=== PATIENT | male | born 1985 | race Caucasian/White ===

== ENCOUNTER 2017-10-23 00:19 | Emergency (ER) | payer BC ==
[2017-10-23] MEDS ORDERED: Morphine INJ* 10 MG/ML 1 ML CARPUJECT IV ONE (01:17)
[2017-10-23] MEDS ORDERED: NS 0.9% 1000 ML* 1,000 ML IV ONE (01:17)
[2017-10-23] MEDS ORDERED: Metoclopramide IV* 5 MG/ML 2 ML VIAL IV SLOW PU ONE (01:19)
[2017-10-23] MEDS ORDERED: Pantoprazole IV* 40 MG IV ONE (01:20)
[2017-10-23 01:30] LABS: ABS Basophils 0 10^3/ul (0-0.2); ABS Eosinophils 0.1 10^3/ul (0-0.6); ABS Lymphocytes 1.1 10^3/ul (1.0-4.8); ABS Monocytes 0.4 10^3/ul (0-0.8); ABS Neutrophils 8.4 10^3/ul (1.5-7.7); ABS Nucleated RBC 0.1 10^3/ul; Eosinophil % 0.5 % (0-6); Hematocrit 46 % (42-52); Hemoglobin 15.9 g/dl (14.0-18.0); Lymphocyte % 11.2 % (25-47); Mean Corpuscular HGB Conc 35 g/dl (31-36); Mean Corpuscular Hemoglobin 31 pg (27-31); Mean Corpuscular Volume 89 fL (80-94); Mean Platelet Volume 9 um3 (7.4-10.4); Nucleated Red Blood Cells % 0.7; Platelet Count 238 10^3/ul (150-450); Red Blood Count 5.15 10^6/ul (4.0-5.4); Red Cell Distribution Width 14 % (10.5-15)
[2017-10-23 01:42] LABS: EGFR Non-African American 65.3 (>60)
[2017-10-23 02:42] VITALS: BP 117/70
[2017-10-23] MEDS ORDERED: Iohexol 300* (CONTRAST) 10 ML SDV IV ONE (03:19)
--- NOTE | 2017-10-23 04:39 | ED ---
Leisa Hutchinson Thomas, scribed for Cheri Batista MD on 10/23/17 at 0128 . Abdominal Pain/Male - HPI Summary HPI Summary: The patient is a 32 year old male presenting with upper abdominal pain that began six hours ago after he ate chicken parmesan for dinner. The pain radiates to his back. He denies diarrhea or prior abdominal surgery. - History of Current Complaint Chief Complaint: EDAbdPain Stated Complaint: ABD PAIN Time Seen by Provider: 10/23/17 01:00 Hx Obtained From: Patient Onset/Duration: Lasting Hours - 6, Still Present Timing: Constant Severity Initially: Moderate Severity Currently: Moderate Pain Intensity: 6 Pain Scale Used: 0-10 Numeric Location: Other - Upper abd Radiates: Yes Radiates to: Back Aggravating Factor(s): Food Alleviating Factor(s): Nothing Associated Signs And Symptoms: Negative: Diarrhea - Allergies/Home Medications Allergies/Adverse Reactions: Allergies Allergy/AdvReac Type Severity Reaction Status Date / Time No Known Allergies Allergy Verified 10/23/17 00:26 PMH/Surg Hx/FS Hx/Imm Hx Sensory History: Reports: Hx Contacts or Glasses - GLASSES Denies: Hx Hearing Aid Opthamlomology History: Reports: Hx Contacts or Glasses - GLASSES EENT History: Denies: Hx Deafness - Surgical History Surgery Procedure, Year, and Place: WISOM TEETH REMOVAL OFFICE Hx Anesthesia Reactions: No Infectious Disease History: No Infectious Disease History: Denies: Traveled Outside the [place] in Last 30 Days - Family History Known Family History: Negative: Blood Disorder - Social History Alcohol Use: Occasionally Substance Use Type: Reports: None Smoking Status (MU): Never Smoked Tobacco Review of Systems Negative: Fever Positive: Abdominal Pain. Negative: Diarrhea All Other Systems Reviewed And Are Negative: Yes Physical Exam - Summary Physical Exam Summary: VITAL SIGNS: Reviewed. GENERAL: Patient is a well-developed and nourished MALE who is lying comfortable in the stretcher. Patient is not in any acute respiratory distress. HEAD AND FACE: No signs of trauma. No ecchymosis, hematomas or skull depressions. No sinus tenderness. EYES: PERRLA, EOMI x 2, No injected conjunctiva, no nystagmus. EARS: Hearing grossly intact. Ear canals and tympanic membranes are within normal limits. MOUTH: Oropharynx within normal limits. NECK: Supple, trachea is midline, no adenopathy, no JVD, no carotid bruit, no c- spine tenderness, neck with full ROM. CHEST: Symmetric, no tenderness at palpation LUNGS: Clear to auscultation bilaterally. No wheezing or crackles. CVS: Regular rate and rhythm, S1 and S2 present, no murmurs or gallops appreciated. ABDOMEN: Soft. He has RUQ and epigastric tenerness. No signs of distention. No rebound no guarding, and no masses palpated. Bowel sounds are normal. EXTREMITIES: FROM in all major joints, no edema, no cyanosis or clubbing. NEURO: Alert and oriented x 3. No acute neurological deficits. Speech is normal and follows commands. SKIN: Dry and warm Triage Information Reviewed: Yes Vital Signs On Initial Exam: Initial Vitals Temp Pulse Resp BP Pulse Ox 97.0 F 43 16 149/90 100 10/23/17 00:23 10/23/17 00:23 10/23/17 00:23 10/23/17 00:23 10/23/17 00:23 Vital Signs Reviewed: Yes Diagnostics - Vital Signs Vital Signs Temp Pulse Resp BP Pulse Ox 10/23/17 00:23 97.0 F 43 16 149/90 100 - Laboratory Result Diagrams: 10/23/17 01:17 10/23/17 01:17 Lab Statement: Any lab studies that have been ordered have been reviewed, and results considered in the medical decision making process. - CT CT Abd/Pel CT Interpretation: No Acute Changes - Trace nonspecific pericholecystic fluid. Gallbladder otherwise unremarkable. No bowel obstruction, colitis, diverticulitis, or free air. Normal appendix. Unremarkable pancreas and kidneys. Borderline hepatosplenomegaly. Dr. Batista has reviewed this report. CT Interpretation Completed By: Radiologist Re-Evaluation - Re-Evaluation First Eval Re-Evaluation Time: 04:30 Change: Improved Comment: Patient feels better. Abdominal Pain Fem Course/Dx - Course Assessment/Plan: The patient is a 32 year old male presenting with upper abdominal pain that began six hours ago after he ate chicken parmesan for dinner. In the ED course the patient was given IV fluids, morphine, Reglan, and Pepcid. Bloodwork and urinalysis was obtained. CT Abd/Pel shows trace nonspecific pericholecystic fluid. Gallbladder otherwise unremarkable. No bowel obstruction, colitis, diverticulitis, or free air. Normal appendix. Unremarkable pancreas and kidneys. Borderline hepatosplenomegaly. At re- evaluation at 04:30, the patient feels better. He will be discharged home with diagnosis of abdominal pain. Patient will follow up with primary care. - Diagnoses Provider Diagnoses: Abdominal pain Discharge - Discharge Plan Condition: Stable Disposition: HOME Patient Education Materials: Abdominal Pain (ED) Referrals: [facility] PHYSICIAN REFERRAL [Outside] - 3 Days Additional Instructions: Follow up with your primary care physician in three days. If you do not have a primary care provider, you can use the [facility] physician referral service to find one and make an appointment. Return to the emergency department for any new or worsening symptoms. The documentation as recorded by the Leisa houston Thomas accurately reflects the service I personally performed and the decisions made by me, Cheri Batista MD.
--- NOTE | 2017-10-23 08:29 | RAD ---
INDICATION: Abdominal pain. COMPARISON: There are no prior studies available for comparison. TECHNIQUE: A CT scan of the abdomen and pelvis was performed with intravenous and oral contrast following intravenous injection of 100 ml of Omnipaque 300 nonionic contrast. Contiguous axial sections were obtained from the lung bases through the symphysis pubis. Images were reconstructed in the coronal and sagittal planes. FINDINGS: There is mild dependent bilateral lower lobe subsegmental atelectasis. No pleural effusion is present. The liver and spleen are normal in size without significant focal abnormality. No intra or extrahepatic ductal distention is noted. No calcified gallstones are seen although there is mild increased density within the gallbladder suspicious for gallstones or sludge. The pancreas appears to be within normal limits. The kidneys and adrenal glands are normal in size. No hydronephrosis is seen. No significant focal renal abnormality is seen. The aorta is normal in caliber and demonstrates homogeneous contrast opacification. No significant enlarged retroperitoneal lymph nodes are seen. The stomach, small and large bowel appear nondistended. The appendix is within normal limits. There is mild descending and sigmoid diverticulosis without evidence for diverticulitis. No free intraperitoneal air or fluid is seen. No significant focal osseous abnormality is seen. The results of this examination were called to the emergency department charge nurse Josie. IMPRESSION: FINDINGS SUSPICIOUS FOR CHOLELITHIASIS OR GALLBLADDER SLUDGE. RECOMMEND A RIGHT UPPER QUADRANT ULTRASOUND FOR FURTHER EVALUATION.
== END 2017-10-23 04:40 | disposition home or self-care (01) ==
LOC: ED 00:19
DX: R10.10 Upper abdominal pain, unspecified (principal)
CPT/HCPCS: 36415; 74177; 80053; 82150; 83690; 83735; 85025; 85730; 86140; 96360; 96374; 96375; 99283; J2270; J2765; Q9967

== ENCOUNTER 2017-12-23 20:33 | Emergency (ER) | payer BC ==
[2017-12-23 20:41] VITALS: BP 164/99
--- NOTE | 2017-12-26 12:27 | UC ---
Iain Hutchinson Nikita, scribed for Vlad Anthony MD on 12/23/17 at 2057 . Abdominal Pain Male HPI - HPI Summary HPI Summary: This patient is a 32 year old M presenting to [facility] with a chief complaint of RUQ since 1845 after eating. The patient rates the pain 4-5/10 in severity. Symptoms aggravated by nothing. Symptoms alleviated by nothing. Patient reports nausea. Patient denies vomiting. The patient reports he had a similar pain when he had to go to ED 2 months ago. - History of Current Complaint Chief Complaint: UCAbdominalPain Stated Complaint: ABDOMINAL PAIN Time Seen by Provider: 12/23/17 20:44 Hx Obtained From: Patient Onset/Duration: Sudden Onset, Lasting Hours, Still Present Severity Initially: Moderate Severity Currently: Moderate Pain Intensity: 5 Pain Scale Used: 0-10 Numeric Location: Discrete At: RUQ Aggravating Factor(s): Nothing Alleviating Factor(s): Nothing Associated Signs And Symptoms: Positive: Other - Patient reports nausea. Patient denies vomiting. - Allergies/Home Medications Allergies/Adverse Reactions: Allergies Allergy/AdvReac Type Severity Reaction Status Date / Time No Known Allergies Allergy Verified 12/23/17 20:41 PMH/Surg Hx/FS Hx/Imm Hx Cardiovascular History: Other Other Cardiovascular History: No CAD GI/ History: Other Other GI/ History: cholelithiasis - Surgical History Surgical History: Yes Surgery Procedure, Year, and Place: WISOM TEETH REMOVAL OFFICE - Family History Known Family History: Positive: Other Negative: Blood Disorder Family History: [place] father, [place] mother - Social History Alcohol Use: Occasionally Substance Use Type: None Smoking Status (MU): Never Smoked Tobacco Review of Systems Constitutional: Other - denies fever Gastrointestinal: Abdominal Pain - RUQ, Nausea, Other - denies vomiting All Other Systems Reviewed And Are Negative: Yes Physical Exam - Summary Physical Exam Summary: VITAL SIGNS: Reviewed. GENERAL: ~Patient is a well-developed and nourished MALE who is lying comfortable in the stretcher. ~Patient is not in any acute respiratory distress. HEAD AND FACE: Normocephalic EYES: PERRLA, EOMI x 2. EARS: Hearing grossly intact. MOUTH: Oropharynx within normal limits. NECK: Supple, trachea is midline, no adenopathy, no JVD, no carotid bruit. CHEST: Symmetric, no tenderness at palpation LUNGS: Clear to auscultation bilaterally. No wheezing or crackles. CVS: Regular rate and rhythm, S1 and S2 present, no murmurs or gallops appreciated. ABDOMEN: Bowel sounds are normal. Positive RUQ pain with some guarding without rebound. EXTREMITIES: Full ROM in all major joints, no edema, no cyanosis or clubbing. NEURO: Alert and oriented x 3. No acute neurological deficits. Speech is normal and follows commands. SKIN: Dry and warm Triage Information Reviewed: Yes Vital Signs: Initial Vital Signs Temp 96.7 F 12/23/17 20:38 Pulse 48 12/23/17 20:38 Resp 12 12/23/17 20:38 BP 164/99 12/23/17 20:38 Pulse Ox 100 12/23/17 20:38 Vital Signs Reviewed: Yes Abd Pain Male Course/Dx - Course Course Of Treatment: This patient is a 32 year old M presenting to [facility] with a chief complaint of RUQ since 184 after eating. The patient rates the pain 4-5/ 10 in severity. Since the patient has hx of cholelithiasis, the gallbladder is large. Therefore, we believe the patient is having a gallbladder attack with nausea but without vomiting. Since we have no ability of US in , we will send him to the ED for further assessment. He declined ambulance. The pt is hemodynamically stable, alert and oriented x3. The patient was found to have increased BP in UC. The patient will follow up with PCP for better control of BP. Plan of care was discussed with the patient, and patient understands and agrees. All questions were answered to patient satisfaction. There were no further complaints or concerns. - Differential Dx/Clinical Impression Provider Diagnoses: RUQ abdominal pain Discharge - Sign-Out/Discharge Documenting (check all that apply): Discharge - Discharge Plan Condition: Stable Disposition: HOME Patient Education Materials: Abdominal Pain (ED) Referrals: [facility] PHYS[facility]IAN REFERRAL [Outside] No Primary Care Phys,NOPCP [Primary Care Provider] - Additional Instructions: Patient referred to the ED for further w/u. Decline ambulance. The documentation as recorded by the Iain houston Nikita accurately reflects the service I personally performed and the decisions made by , Vlad Anthony MD.
== END 2017-12-23 20:55 | disposition home or self-care (01) ==
LOC: UCEAST 20:33
DX: R10.11 Right upper quadrant pain (principal); R11.0 Nausea; K80.20 Calculus of gallbladder without cholecystitis without obstruction
CPT/HCPCS: 99212; G0463

== ENCOUNTER 2017-12-23 21:13 | Emergency (ER) | payer BC ==
[2017-12-23 23:05] LABS: ABS Basophils 0 10^3/ul (0-0.2); ABS Eosinophils 0 10^3/ul (0-0.6); ABS Monocytes 0.4 10^3/ul (0-0.8); ABS Neutrophils 7.2 10^3/ul (1.5-7.7); ABS Nucleated RBC 0 10^3/ul; Eosinophil % 0.5 % (0-6); Hematocrit 41 % (42-52); Hemoglobin 14.7 g/dl (14.0-18.0); Lymphocyte % 11.8 % (25-47); Mean Corpuscular HGB Conc 36 g/dl (31-36); Mean Corpuscular Hemoglobin 31 pg (27-31); Mean Corpuscular Volume 87 fL (80-94); Mean Platelet Volume 8.4 um3 (7.4-10.4); Nucleated Red Blood Cells % 0; Platelet Count 181 10^3/ul (150-450); Red Blood Count 4.71 10^6/ul (4.0-5.4); Red Cell Distribution Width 13 % (10.5-15); White Blood Count 8.7 10^3/ul (3.5-10.8)
[2017-12-23 23:22] LABS: EGFR Non-African American 60.9 (>60)
[2017-12-24 00:41] VITALS: BP 131/70
--- NOTE | 2017-12-24 00:45 | ED ---
Florence Hutchinson Rebecca, scribed for Cheri Batista MD on 12/23/17 at 2231 . Abdominal Pain/Male - HPI Summary HPI Summary: Pt is a 32 y/o M referred from [facility] who presents to ED c/o abdominal pain. Sx began tonight at approximately 1845 and resolved [employer], while en route to [facility] ED. Pain was in the RUQ and lasted about 3 hours, now completely resolved. Denies N/ V. Similar to prior episode about 1 month ago during which he was believed to have a gallstone. PMHx suspected gallstones as he had a similar episode about 1 month ago, though when he was seen before there was no US available. - History of Current Complaint Chief Complaint: EDAbdPain Stated Complaint: ABD PAIN Time Seen by Provider: 12/23/17 22:22 Hx Obtained From: Patient Onset/Duration: Lasting Hours, Resolved Severity Currently: None Pain Intensity: 0 Pain Scale Used: 0-10 Numeric Location: Discrete At: RUQ Aggravating Factor(s): Nothing Alleviating Factor(s): Spontaneous Resolution Associated Signs And Symptoms: Positive: Negative. Negative: Nausea, Vomiting - Allergies/Home Medications Allergies/Adverse Reactions: Allergies Allergy/AdvReac Type Severity Reaction Status Date / Time No Known Allergies Allergy Verified 12/23/17 20:41 Home Medications: Home Medications Cetirizine* [ZyrTEC 10 MG TAB*] 10 mg PO DAILY 12/23/17 [History Confirmed 12/23] PMH/Surg Hx/FS Hx/Imm Hx GI History: Reports: Other GI Disorders - Hx gallstones - suspected Sensory History: Reports: Hx Contacts or Glasses - GLASSES Denies: Hx Deafness, Hx Hearing Aid Opthamlomology History: Reports: Hx Contacts or Glasses - GLASSES - Surgical History Surgery Procedure, Year, and Place: WISOM TEETH REMOVAL OFFICE Hx Anesthesia Reactions: No Infectious Disease History: No Infectious Disease History: Denies: Traveled Outside the [place] in Last 30 Days - Family History Known Family History: Negative: Blood Disorder - Social History Alcohol Use: Occasionally Substance Use Type: Reports: None Smoking Status (MU): Never Smoked Tobacco Review of Systems Negative: Fever Positive: Abdominal Pain. Negative: Vomiting, Nausea All Other Systems Reviewed And Are Negative: Yes Physical Exam - Summary Physical Exam Summary: VITAL SIGNS: Reviewed. GENERAL: ~Patient is a well-developed and nourished male who is lying comfortable in the stretcher. Patient is not in any acute respiratory distress. HEAD AND FACE: No signs of trauma. No ecchymosis, hematomas or skull depressions. No sinus tenderness. EYES: PERRLA, EOMI x 2, No injected conjunctiva, no nystagmus. EARS: Hearing grossly intact. Ear canals and tympanic membranes are within normal limits. MOUTH: Oropharynx within normal limits. NECK: Supple, trachea is midline, no adenopathy, no JVD, no carotid bruit, no c- spine tenderness, neck with full ROM. CHEST: Symmetric, no tenderness at palpation LUNGS: Clear to auscultation bilaterally. No wheezing or crackles. CVS: Regular rate and rhythm, S1 and S2 present, no murmurs or gallops appreciated. ABDOMEN: Soft, non-tender. No signs of distention. No rebound no guarding, and no masses palpated. Bowel sounds are normal. EXTREMITIES: FROM in all major joints, no edema, no cyanosis or clubbing. NEURO: Alert and oriented x 3. No acute neurological deficits. Speech is normal and follows commands. SKIN: Dry and warm Triage Information Reviewed: Yes Vital Signs On Initial Exam: Initial Vitals Temp Pulse Resp BP Pulse Ox 97.5 F 57 18 154/93 97 12/23/17 21:32 12/23/17 21:32 12/23/17 21:32 12/23/17 21:32 12/23/17 21:32 Vital Signs Reviewed: Yes Diagnostics - Vital Signs Vital Signs Temp Pulse Resp BP Pulse Ox 12/23/17 21:32 97.5 F 57 18 154/93 97 - Laboratory Result Diagrams: 12/23/17 22:55 12/23/17 22:55 Lab Statement: Any lab studies that have been ordered have been reviewed, and results considered in the medical decision making process. - Ultrasound No standard instances Ultrasound Interpretation Completed By: Radiologist - Gallbladder US - Moderate suspicion for cholecystitis without biliary duct dilation. ED physician reviewed this radiology report. Re-Evaluation - Re-Evaluation First Eval Re-Evaluation Time: 23:55 Change: Improved Comment: Pt continues to be pain free. Discussed results and followup with Dr. Yee. Abdominal Pain Fem Course/Dx - Course Assessment/Plan: Pt is a 32 y/o M referred from [facility] who presents to ED c/o RUQ abdominal pain since approximately 184, resolving [employer], while en route to [facility] ED. Denies N/V. Similar to prior episode about 1 month ago during which he was believed to have a gallstone. PMHx suspected gallstones. Gallbladder US shows moderate suspicion for cholecystitis without biliary duct dilation. The pt has been pain free, has an unremarkable examination and normal labs, nothing consistent with acute cholecystitis. Discussed care of pt with Dr. Yee who will see the pt in his office in the morning. Pt will be D/C to home with Dx of biliary colic and cholecystitis with a followup with Dr. Yee. He understands and agrees. - Diagnoses Provider Diagnoses: Biliary colic, Cholelithiasis - Provider Notifications Discussed Care Of Patient With: King Yee Time Discussed With Above Provider: 23:55 Instructed by Provider To: Other - Will see the pt in his office in the morning. Discharge - Sign-Out/Discharge Documenting (check all that apply): Discharge - Discharge - Discharge Plan Condition: Stable Disposition: HOME Patient Education Materials: Biliary Colic (ED), Gallstones (ED) Referrals: King Yee MD [Medical Doctor] - 12/24/17 (Follow up with Dr. Yee in the morning. ) Dejon Staples MD [Primary Care Provider] - Additional Instructions: RETURN TO EMERGENCY DEPARTMENT FOR ANY NEW OR WORSENING SYMPTOMS The documentation as recorded by the Florence houston Rebecca accurately reflects the service I personally performed and the decisions made by me, Cheri Batista MD.
--- NOTE | 2017-12-24 07:52 | RAD ---
HISTORY: Right upper quadrant pain COMPARISONS: None TECHNIQUE: Multiple transverse and longitudinal ultrasound images were obtained of the right upper quadrant of the abdomen using grayscale and color Doppler imaging. FINDINGS: LIVER: The liver is normal in shape, size, contour, and echogenicity. There are no focal parenchymal masses. There is normal hepatopedal flow of the portal vein on Doppler imaging. BILIARY TREE: There is no intrahepatic or extrahepatic biliary dilatation. The common duct measures 0.6 cm. GALLBLADDER: There is borderline gallbladder wall thickening. There are shadowing echogenic foci consistent with gallstones. There are nonshadowing echogenic foci suggestive of gallbladder wall polyps versus sludge balls, the largest measuring 1.5 cm in size. There is no sonographic Kay's sign or pericholecystic fluid. PANCREAS: The head of the pancreas is unremarkable. The tail of the pancreas is not well visualized secondary to overlying bowel gas. RIGHT KIDNEY: The right kidney is normal in shape, size, contour, and echogenicity. There is no hydronephrosis or nephrolithiasis. The right kidney measures 10.4 x 5 x 5.9 cm. AORTA AND IVC: The aorta and IVC are unremarkable. FLUID: There are no pleural effusions. There is no free fluid within the hepatorenal recess. OTHER FINDINGS: None. IMPRESSION: 1. THERE IS BORDERLINE GALLBLADDER WALL THICKENING, WITH GALLSTONES, WITHOUT PERICHOLECYSTIC FLUID OR SONOGRAPHIC KAY SIGN. THE IMAGING FEATURES ARE INDETERMINATE FOR ACUTE CHOLECYSTITIS. 2. THERE ARE NONSHADOWING ECHOGENIC FOCI WITHIN THE GALLBLADDER WHICH MAY REPRESENT THE GALLBLADDER WALL POLYPS VERSUS SLUDGE BALLS, THE LARGEST MEASURING UP TO 1.5 CM IN SIZE. GIVEN THE PRESENCE OF POSSIBLE LARGE POLYPS, RECOMMEND CONSIDERATION OF FURTHER EVALUATION WITH CONTRAST-ENHANCED MRI OF THE ABDOMEN AND/OR SURGICAL CONSULTATION.
--- NOTE | 2017-12-25 06:03 | PN ---
Progress Note - Progress Note Date of Service: 12/23/17 Note: Pt. seen in ER 12/23/17 for RUQ pain. Final U/S report: IMPRESSION: 1. THERE IS BORDERLINE GALLBLADDER WALL THICKENING, WITH GALLSTONES, WITHOUT PERICHOLECYSTIC FLUID OR SONOGRAPHIC MARTIN SIGN. THE IMAGING FEATURES ARE INDETERMINATE FOR ACUTE CHOLECYSTITIS. 2. THERE ARE NONSHADOWING ECHOGENIC FOCI WITHIN THE GALLBLADDER WHICH MAY REPRESENT THE GALLBLADDER WALL POLYPS VERSUS SLUDGE BALLS, THE LARGEST MEASURING UP TO 1.5 CM IN SIZE. GIVEN THE PRESENCE OF POSSIBLE LARGE POLYPS, RECOMMEND CONSIDERATION OF FURTHER EVALUATION WITH CONTRAST-ENHANCED MRI OF THE ABDOMEN AND/OR SURGICAL CONSULTATION. General surgery was consulted in the ER, Dr. Yee, who planned on seeing pt. in the office 12/24/17. No further workup needed at this time.
== END 2017-12-24 00:41 | disposition home or self-care (01) ==
LOC: ED 21:13
DX: K80.50 Calculus of bile duct without cholangitis or cholecystitis without obstruction (principal); K80.20 Calculus of gallbladder without cholecystitis without obstruction
CPT/HCPCS: 36415; 76705; 80053; 83690; 85025; 86140; 99282

== ENCOUNTER 2018-01-13 13:01 | Inpatient (IN) | payer BC ==
[2018-01-13 17:01] LABS: ABS Basophils 0 10^3/ul (0-0.2); ABS Eosinophils 0.1 10^3/ul (0-0.6); ABS Monocytes 0.4 10^3/ul (0-0.8); ABS Neutrophils 2.3 10^3/ul (1.5-7.7); ABS Nucleated RBC 0 10^3/ul; Eosinophil % 3.2 % (0-6); Hematocrit 44 % (42-52); Hemoglobin 15.1 g/dl (14.0-18.0); Lymphocyte % 25.7 % (25-47); Mean Corpuscular HGB Conc 35 g/dl (31-36); Mean Corpuscular Hemoglobin 31 pg (27-31); Mean Corpuscular Volume 88 fL (80-94); Mean Platelet Volume 8.6 um3 (7.4-10.4); Nucleated Red Blood Cells % 0; Platelet Count 180 10^3/ul (150-450); Red Blood Count 4.92 10^6/ul (4.0-5.4); Red Cell Distribution Width 13 % (10.5-15); White Blood Count 3.8 10^3/ul (3.5-10.8)
[2018-01-13 17:04] LABS: Urine Appearance Clear; Urine Blood Negative (Negative); Urine Color Amber; Urine Ketones Negative (Negative); Urine Protein Negative (Negative); Urine Specific Gravity 1.011 (1.010-1.030); Urine Urobilinogen Negative (Negative)
[2018-01-13 17:19] LABS: INR 0.94 (0.77-1.02)
[2018-01-13 17:20] LABS: EGFR Non-African American 68.4 (>60)
[2018-01-13] MEDS: NS 0.9% 1000 ML* 2,000 ML IV ONE (17:23)
--- NOTE | 2018-01-13 18:43 | RAD ---
HISTORY: Abdominal pain and susan colored stool COMPARISONS: Similar examination dated December 23, 2017 that showed gallbladder sludge and multiple echogenic stones. TECHNIQUE: Multiple transverse and longitudinal ultrasound images were obtained of the right upper quadrant. FINDINGS: LIVER: The liver is normal in dimensions and echogenicity. Normal hepatic and portal venous blood flow is duplicated with color flow imaging. There is no gross intrahepatic biliary duct dilatation. GALLBLADDER AND EXTRAHEPATIC BILIARY DUCT: Again seen is echogenic material filling the gallbladder lumen with multiple hyperechoic shadowing gallbladder stones. The wall measures up to 3 mm in thickness. There is no definite pericholecystic fluid. The director of cloud services reports a negative sonographic Kay sign. The common bile duct measures a maximum diameter of 8 mm. PANCREAS: The portions of the pancreas not obscured by bowel gas are normal in appearance. RIGHT KIDNEY: The right kidney is normal in size, morphology and echogenicity. AORTA AND IVC: The visualized portions are normal in appearance and not pathologically dilated. IMPRESSION: CHOLELITHIASIS AND GALLBLADDER SLUDGE IN THE PRESENCE OF A PATHOLOGICALLY DILATED COMMON BILE DUCT MEASURING 7.5 MM. PLEASE CORRELATE TO CLINICAL SIGNS AND SYMPTOMS OF BILIARY OBSTRUCTION. IF CLINICALLY WARRANTED OBJECTIVE PHYSIOLOGIC CHARACTERIZATION CAN BE MADE WITH HIDA SCAN.
[2018-01-13] MEDS ORDERED: Iohexol 300* (CONTRAST) 10 ML SDV IV ONE (19:24)
[2018-01-13] MEDS ORDERED: Ondansetron INJ* 2 MG/ML VIAL IV PRN (19:26)
[2018-01-13] MEDS: NS 0.9% 1000 ML* 1,000 ML IV SCH (21:21)
[2018-01-13] MEDS: Morphine VIAL* 4 MG/ML VIAL (1 ml vial) IV PRN (21:29)
[2018-01-13] MEDS ORDERED: Heparin VIAL(*) 5000 UNITS/ML VIAL (FIVE THOUSAND) SUBCUT SCH (22:00)
--- NOTE | 2018-01-14 00:01 | ED ---
Jitendra Hutchinson Natalie, scribed for Suma Montesinos MD on 01/13/18 at 1744 . GI/ HPI - HPI Summary HPI Summary: The pt is a 32 y/o M presenting to the ED c/o gaitan and loose stool and dark, orange urine starting today, and diffuse abd pain starting 01/10/18. The pt is scheduled to get gallbladder surgery on 01/27/18, but after contacting his PCP, Dr. Staples, he was told to come to the ED. During the weekend, (the past 3 days) the pt's pain was constant and sharp, rated 7/10, but currently he is not in much pain, rated 1/10 in severity. He has taken Ibuprofen and Tylenol to treat the pain to little relief. Pt additionally c/o shoulder pain and bloating that feels like he "just ate a full turkey dinner." He denies any changes in diet, dysuria, testicular pain, and urinary discharge. He last ate quinoa five hours ago. FHx of macular degeneration in mother. - History of Current Complaint Chief Complaint: EDAbdPain Time Seen by Provider: 01/13/18 16:28 Stated Complaint: SENT BY DR GREGG Hx Obtained From: Patient Onset/Duration: Started Days Ago, Atraumatic, Still Present, Worse Since - this am Timing: Constant Severity: Severe Current Severity: Mild Pain Intensity: 0 Location of Pain: Diffuse Pain Characteristics: Sharp Associated Signs and Symptoms: Positive: Other: - POSITIVE: gaitan stool, orange urine, bloating, shoulder pain; NEGATIVE: testicular pain, urinary discharge Aggravating Factor(s): Nothing Alleviating Factor(s): Nothing - Allergy/Home Medications Allergies/Adverse Reactions: Allergies Allergy/AdvReac Type Severity Reaction Status Date / Time No Known Allergies Allergy Verified 01/13/18 13:20 PMH/Surg Hx/FS Hx/Imm Hx Previously Healthy: Yes Respiratory History: Reports: Hx Seasonal Allergies GI History: Reports: Hx Gall Bladder Disease - known gallstones, scheduled for cholecystectomy in several days, Other GI Disorders Sensory History: Reports: Hx Contacts or Glasses - GLASSES Denies: Hx Deafness, Hx Hearing Aid Opthamlomology History: Reports: Hx Contacts or Glasses - GLASSES EENT History: Denies: Hx Deafness - Surgical History Surgery Procedure, Year, and Place: WISOM TEETH REMOVAL Hx Anesthesia Reactions: No Infectious Disease History: No Infectious Disease History: Denies: Traveled Outside the [place] in Last 30 Days - Family History Known Family History: Positive: Other - macular degeneration in mother Negative: Blood Disorder - Social History Occupation: Employed Full-time Lives: With Family Alcohol Use: Occasionally Substance Use Type: Reports: None Smoking Status (MU): Never Smoked Tobacco Review of Systems Constitutional: Negative Cardiovascular: Negative Respiratory: Negative Positive: Abdominal Pain, Other - gaitan stool, bloating Positive: other - orange urine. Negative: dysuria, discharge Musculoskeletal: Other - shoulder pain Skin: Negative Neurological: Negative Psychological: Normal All Other Systems Reviewed And Are Negative: Yes Physical Exam - Summary Physical Exam Summary: Appearance: Well-appearing, moderate pain distress, Well-nourished Skin: Warm, color reflects adequate perfusion, mildy jaundiced Head: Normal Head/Face inspection, atraumatic Eyes: Conjunctiva icteric ENT: Normal inspection except for jaundice Neck: Supple, no nodes, no JVD. Respiratory: Lungs clear, Normal breath sounds, no respiratory distress Cardio: RRR, No murmur, pulses normal, brisk capillary refill Abdomen: soft, diffuse tenderness, no masses, no guarding, no rebound GI/ Exam: testicles descended, no tenderness, no masses, circumcised, no drainage, no inguinal or femoral hernias Bowel sounds: present Musculoskeletal: Strength Intact/ ROM intact. No calf tenderness. No edema. Psychological: Normal Neuro: Alert, muscle tone normal, no focal deficit Triage Information Reviewed: Yes Vital Signs On Initial Exam: Initial Vitals Temp Pulse Resp BP Pulse Ox 97.8 F 62 16 126/77 99 01/13/18 13:20 01/13/18 13:20 01/13/18 13:20 01/13/18 13:20 01/13/18 13:20 Vital Signs Reviewed: Yes Diagnostics - Vital Signs Vital Signs Temp Pulse Resp BP Pulse Ox 01/13/18 15:34 97.7 F 56 16 130/75 99 01/13/18 13:20 97.8 F 62 16 126/77 99 - Laboratory Lab Results: Lab Results 01/13/18 01/13/18 01/13/18 Range/Units 16:52 16:52 16:52 WBC 3.8 (3.5-10.8) 10^3/ul RBC 4.92 (4.0-5.4) 10^6/ul Hgb 15.1 (14.0-18.0) g/dl Hct 44 (42-52) % MCV 88 (80-94) fL MCH 31 (27-31) pg MCHC 35 (31-36) g/dl RDW 13 (10.5-15) % Plt Count 180 (150-450) 10^3/ul MPV 8.6 (7.4-10.4) um3 Neut % (Auto) 60.2 (38-83) % Lymph % (Auto) 25.7 (25-47) % [place] % (Auto) 10.2 H (0-7) % Eos % (Auto) 3.2 (0-6) % Baso % (Auto) 0.7 (0-2) % Absolute Neuts (auto) 2.3 (1.5-7.7) 10^3/ul Absolute Lymphs (auto) 1.0 (1.0-4.8) 10^3/ul Absolute Monos (auto) 0.4 (0-0.8) 10^3/ul Absolute Eos (auto) 0.1 (0-0.6) 10^3/ul Absolute Basos (auto) 0 (0-0.2) 10^3/ul Absolute Nucleated RBC 0 10^3/ul Nucleated RBC % 0 INR (Anticoag Therapy) (0.77-1.02) APTT (26.0-36.3) seconds Sodium 139 (139-145) mmol/L Potassium 3.8 (3.5-5.0) mmol/L Chloride 102 (101-111) mmol/L Carbon Dioxide 28 (22-32) mmol/L Anion Gap 9 (2-11) mmol/L BUN 12 (6-24) mg/dL Creatinine 1.22 H (0.67-1.17) mg/dL Est GFR ( Amer) 88.0 (>60) Est GFR (Non-Af Amer) 68.4 (>60) BUN/Creatinine Ratio 9.8 (8-20) Glucose 92 (70-100) mg/dL Lactic Acid 0.8 (0.5-2.0) mmol/L Calcium 9.7 (8.6-10.3) mg/dL Magnesium 2.4 (1.9-2.7) mg/dL Total Bilirubin 7.70 H (0.2-1.0) mg/dL AST 185 H (13-39) U/L ALT Pending Alkaline Phosphatase 106 H (34-104) U/L Total Creatine Kinase 93 (10-223) U/L Troponin I 0.00 (<0.04) ng/mL C-Reactive Protein 17.70 H (< 5.00) mg/L Total Protein 7.5 (6.4-8.9) g/dL Albumin 4.9 (3.2-5.2) g/dL Globulin 2.6 (2-4) g/dL Albumin/Globulin Ratio 1.9 (1-3) Amylase 33 (29-103) U/L Lipase 34 (11.0-82.0) U/L Urine Color Urine Appearance Urine pH (5-9) Ur Specific [place] (1.010-1.030) Urine Protein (Negative) Urine Ketones (Negative) Urine Blood (Negative) Urine Nitrate (Negative) Urine Bilirubin (Negative) Urine Urobilinogen (Negative) Ur Leukocyte Esterase (Negative) Urine Glucose (Negative) 01/13/18 01/13/18 Range/Units 16:52 16:54 WBC (3.5-10.8) 10^3/ul RBC (4.0-5.4) 10^6/ul Hgb (14.0-18.0) g/dl Hct (42-52) % MCV (80-94) fL MCH (27-31) pg MCHC (31-36) g/dl RDW (10.5-15) % Plt Count (150-450) 10^3/ul MPV (7.4-10.4) um3 Neut % (Auto) (38-83) % Lymph % (Auto) (25-47) % [place] % (Auto) (0-7) % Eos % (Auto) (0-6) % Baso % (Auto) (0-2) % Absolute Neuts (auto) (1.5-7.7) 10^3/ul Absolute Lymphs (auto) (1.0-4.8) 10^3/ul Absolute Monos (auto) (0-0.8) 10^3/ul Absolute Eos (auto) (0-0.6) 10^3/ul Absolute Basos (auto) (0-0.2) 10^3/ul Absolute Nucleated RBC 10^3/ul Nucleated RBC % INR (Anticoag Therapy) 0.94 (0.77-1.02) APTT 37.6 H (26.0-36.3) seconds Sodium (139-145) mmol/L Potassium (3.5-5.0) mmol/L Chloride (101-111) mmol/L Carbon Dioxide (22-32) mmol/L Anion Gap (2-11) mmol/L BUN (6-24) mg/dL Creatinine (0.67-1.17) mg/dL Est GFR ( Amer) (>60) Est GFR (Non-Af Amer) (>60) BUN/Creatinine Ratio (8-20) Glucose (70-100) mg/dL Lactic Acid (0.5-2.0) mmol/L Calcium (8.6-10.3) mg/dL Magnesium (1.9-2.7) mg/dL Total Bilirubin (0.2-1.0) mg/dL AST (13-39) U/L ALT Alkaline Phosphatase (34-104) U/L Total Creatine Kinase (10-223) U/L Troponin I (<0.04) ng/mL C-Reactive Protein (< 5.00) mg/L Total Protein (6.4-8.9) g/dL Albumin (3.2-5.2) g/dL Globulin (2-4) g/dL Albumin/Globulin Ratio (1-3) Amylase (29-103) U/L Lipase (11.0-82.0) U/L Urine Color [place] Urine Appearance Clear Urine pH 6.0 (5-9) Ur Specific [place] 1.011 (1.010-1.030) Urine Protein Negative (Negative) Urine Ketones Negative (Negative) Urine Blood Negative (Negative) Urine Nitrate Negative (Negative) Urine Bilirubin Negative (Negative) Urine Urobilinogen Negative (Negative) Ur Leukocyte Esterase Negative (Negative) Urine Glucose Negative (Negative) Result Diagrams: 01/15/18 06:16 01/15/18 06:16 Lab Statement: Any lab studies that have been ordered have been reviewed, and results considered in the medical decision making process. - Ultrasound No standard instances Ultrasound Interpretation: Positive (See Comments) - Gallbladder US: Cholelithiasis and gallbladder sludge in the presence of a pathologically dilated common bile duct measuring 7.5 mm. Please correlate to clinical signs and symptoms of biliary obstruction. If clinically warranted objective physiologic characterization can be made with hida scan. ED physician has reviewed this report. Ultrasound Interpretation Completed By: Radiologist Re-Evaluation - Re-Evaluation First Eval Re-Evaluation Time: 19:05 Change: Unchanged Comment: I spoke with the pt concerning admission [place] [facility] [place] on Dr. Yee' s report, with Dr. Keller to consult first, due to obstructive jaundice. Pt is agreeable with this plan. GIGU Course/Dx - Course Course Of Treatment: Pt's medications reviewed. GI/ exam was unremarkable. Gallbladder US shows enlarged bile duct, After speaking with Dr. Yee, pt will be admitted to [facility] for GI evaluation for possible ERCP due to obstructive jaundice pattern. Discussed with Dr. Keller who advises admit hospitalist. Pt is agreeable with this plan. - Diagnoses Differential Diagnoses - Male: Cholecystitis, Cholelithiasis, Other - choledocholithiasis Provider Diagnoses: Obstructive jaundice, Cholelithiasis, Choledocholithiasis - Physician Notifications Discussed Care Of Patient With: Sridevi Velazco - agrees to admit. also discussed with Dr. Yee, general surgeon and Dr. Keller, GI Time Discussed With Above Provider: 19:00 Instructed by Provider To: Admit As Inpatient Discharge - Sign-Out/Discharge Documenting (check all that apply): Discharge/Admit/Transfer - admit - Discharge Plan Condition: Good Disposition: [facility]MITTED TO [facility] - Billing Disposition and Condition Condition: GOOD Disposition: [facility] The documentation as recorded by the Jitendra houston Natalie accurately reflects the service I personally performed and the decisions made by , Suma Montesinos MD.
--- NOTE | 2018-01-14 04:19 | HP ---
CC: Dr. Staples; Dr. Keller; Dr. Yee * HISTORY AND PHYSICAL: DATE OF ADMISSION: 01/13/18 PRIMARY CARE PROVIDER: Dr. Staples. He is down at [facility]. ATTENDING PHYSICIAN WHILE IN THE HOSPITAL: Sridevi Velazco MD * (report dictated by Mike Nino NP) CONSULTING GASOLINE CATALYST OPERATOR: Dr. Keller. CONSULTING SURGEON: Dr. Yee. CHIEF COMPLAINT: 1. Abdominal discomfort. 2. Discolored stool and urine. HISTORY OF PRESENT ILLNESS: Mr. Cr is a 32-year-old male patient who originally has a history of seasonal allergies that comes in to the emergency department today stating that in October he noted that he had epigastric type discomfort. He thought it was reflux, but he did get evaluated here in the ED. He was told that he had gallstones. He set up appointments according to the patient with the surgeon he was seen. He states he is scheduled to have the gallbladder out 2 weeks from now. He states he had 2 other episodes of abdominal discomfort in the right upper quadrant over the last couple of months , but they were self- relieving. He did have to come to the ER one other time in the beginning of December. He was discharged and then again he was evaluated by our surgeon and it was felt that he ultimately would eventually need his gallbladder removed. Unfortunately though on the weekend, he started having abdominal discomfort again. He had some pizza on Saturday. After eating raisins on Saturday, he had a significant amount of pain in the right upper and right lower quadrant that was 2/3, but it was coming and going, waxing and weaning, getting more severe. He started noticing that his stool and his urine changed color yesterday. The pain was not getting any better today, so he decided to come in. He denies feeling nauseated. He states he did not feel short of breath. He said he had no fevers or chills. He just noted that he was not feeling well, so he decided to come in and he was evaluated in the ED and ultimately it was noted that his bili was 7.7, his LFTs were elevated. In addition to this, it was noted that he had a common bile duct, which was enlarged with possible stones and there was cholelithiasis and gallbladder sludge with a dilated common bile duct. We were asked to evaluate for admission. He does state that he is pretty healthy. He exercises 4 to 5 times a week and he does not get chest pain or shortness of breath with this. PAST MEDICAL HISTORY: Significant for seasonal allergies. PAST SURGICAL HISTORY: 1. He has had deviated septum repair. 2. He has had wisdom teeth extraction. MEDICATIONS: Home medications include Zyrtec 1 tablet p.o. daily. ALLERGIES TO MEDICATIONS: Include no known drug allergies. FAMILY HISTORY: Mother had a history of breast cancer. Father had a history of CAD, HI, AFib, and diabetes. SOCIAL HISTORY: He does not smoke. He occasionally drinks alcohol. 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 Surrogate decision maker is his . REVIEW OF SYSTEMS: There is no documented fever. He denies any significant weight change. There is no double vision. He denies having any ear discharge. There is no rhinorrhea. There is no sore throat. No thyroid enlargement. He denies having any chest pain. There is no orthopnea. There is no nocturnal dyspnea. There is abdominal discomfort per my HPI. There is no nausea, vomiting. No dysuria, no frequency. No seizure, no loss of consciousness. No pruritus and no skin ulcerations. Review of 14 systems was completed, all others negative. PHYSICAL EXAMINATION GENERAL: At this time, Mr. Cr is a 32-year-old male patient. He appears to be well nourished, well developed. He is sitting in the ED stretcher. He does not appear to be in any acute distress. VITAL SIGNS: Blood pressure 123/72, pulse 55, respirations 16, O2 saturation 98 %, temperature 97.7. HEENT: Head: Atraumatic, normocephalic. Eyes: EOMs are intact. Sclerae anicteric and not pale. Throat: Oral mucosa appears to be moist. No oropharyngeal erythema. NECK: Supple. LUNGS: Clear to auscultation bilaterally. No wheezes, rales, or rhonchi. HEART: Sounds S1, S2. Regular rate and rhythm. No murmurs, rubs, or gallops. ABDOMEN: Soft, flat. Bowel sounds were present. There was tenderness in the right upper and right lower quadrant. EXTREMITIES: Pulses were 2+ throughout. He is moving all 4 extremities with 5/ 5 strength. NEUROLOGIC: The patient is awake, alert, and oriented x3. Tongue is midline. Relay Associate are equal. No gross focal deficits. SKIN: Grossly intact. LABORATORY DATA/DIAGNOSTIC STUDIES: WBC of 3.8, RBC of 4.92, hemoglobin 15.1, hematocrit of 44, platelet count of 180,000. INR of 0.94, PTT of 37.6. Sodium was 139, potassium 3.8, chloride 102, bicarb 28, BUN 12, creatinine was 1.22 which is near his baseline. Glucose is 92. Lactate 0.8. Calcium 9.7. Mag 2.4. Total bili 7.7, AST 185, ALT 469, alk phos 106. Troponin 0. Albumin of 4.9. Amylase and lipase stable. Urine was obtained, it was negative. He had abdominal gallbladder ultrasound obtained today, which showed cholelithiasis and gallbladder sludge in the presence of pathologically dilated common bile duct measuring 7.5 mm. Please correlate for clinical signs and symptoms of biliary obstruction. If clinically warranted, objective physiologic characterization can be made with HIDA scan. Old medical records were reviewed. ASSESSMENT AND PLAN: Mr. Cr is a 32-year-old male patient coming in to the ER today with complaints of abdominal pain. On evaluation here today, it was noted that he had a dilated common bile duct and in addition to this, elevated LFTs. He will be admitted under inpatient status for: 1. Choledocholithiasis. Fortunately, he does not appear to be infected at this point, so I do not think there is a role for antibiotics. He does need to be made n.p.o. Pain control, p.r.n. antiemetics. I did touch base with GI and Surgery. The plan will be to repeat labs tomorrow. If the LFTs are trending down, we will get an MRCP. If they are trending up, then we will possibly need an ERCP, so he will be n.p.o. No antibiotics currently at this point, so we will continue with pain control management and continue to follow. 2. History of seasonal allergies. We will go ahead and place the patient on Zyrtec. Code status; he is full code. 3. DVT prophylaxis. He is low risk. He will be placed on heparin subcu. 4. Fluids, electrolytes and nutrition. He is n.p.o. We will hydrate the patient. TIME SPENT: On admission 60 minutes, greater than half the time spent face-to- face with the patient obtaining my history and physical; other half of the time spent going over the plan of care with the patient and implementing plan of care. I did discuss the plan of care with my attending, Dr. Velazco; she is in agreement. MIKE NINO, PATRICK [id number]/[facility] #: [id number] WILBER
[2018-01-14] MEDS: NS 0.9% 1000 ML* 1,000 ML IV SCH ×2 (05:43→15:28)
[2018-01-14 06:13] LABS: ABS Basophils 0 10^3/ul (0-0.2); ABS Eosinophils 0.1 10^3/ul (0-0.6); ABS Lymphocytes 0.9 10^3/ul (1.0-4.8); ABS Monocytes 0.3 10^3/ul (0-0.8); ABS Nucleated RBC 0 10^3/ul; Hematocrit 39 % (42-52); Hemoglobin 13.4 g/dl (14.0-18.0); Lymphocyte % 26.6 % (25-47); Mean Corpuscular HGB Conc 35 g/dl (31-36); Mean Corpuscular Hemoglobin 31 pg (27-31); Mean Corpuscular Volume 89 fL (80-94); Mean Platelet Volume 8.9 um3 (7.4-10.4); Nucleated Red Blood Cells % 0.1; Platelet Count 152 10^3/ul (150-450); Red Blood Count 4.35 10^6/ul (4.0-5.4); Red Cell Distribution Width 13 % (10.5-15); White Blood Count 3.3 10^3/ul (3.5-10.8)
[2018-01-14 06:17] LABS: INR 0.89 (0.77-1.02)
[2018-01-14 06:30] LABS: EGFR Non-African American 76.3 (>60)
[2018-01-14] MEDS: Morphine VIAL* 4 MG/ML VIAL (1 ml vial) IV PRN ×2 (08:56→16:23)
[2018-01-14] MEDS ORDERED: Potassium Chloride IV* 40 MEQ in NS 0.9% 250 ML* 250 ML IVPB ONE (09:00)
[2018-01-14] MEDS ORDERED: KCL 20 MEQ/100 ML IVPREMIX* 20 MEQ/100 ML BAG IV SCH (09:00)
--- NOTE | 2018-01-14 09:16 | PN ---
Subjective Date of Service: 01/14/18 Interval History: patient reports diffuse abdominal pain, feels about the same as yesterday, maybe a little better. No fever or chills. No nausea or vomiting. Objective Active Medications: Cetirizine HCl (Zyrtec*) 10 mg PO DAILY LOVELY PRN Reason: Protocol Sodium Chloride (Ns 0.9% 1000 Ml*) 1,000 mls @ 125 mls/hr IV PER RATE [facility] Last Admin: 01/14/18 05:43 Dose: 125 mls/hr Morphine Sulfate (Morphine Vial*) 2 mg IV Q4H PRN PRN Reason: PAIN - MILD Last Admin: 01/14/18 08:56 Dose: 2 mg Ondansetron HCl (Zofran Inj*) 4 mg IV Q6H PRN PRN Reason: NAUSEA Vital Signs - 8 hr 01/14/18 01/14/18 01/14/18 03:43 07:44 08:56 Temperature 97.8 F Pulse Rate 53 Respiratory 16 18 18 Rate Blood Pressure 101/56 (mmHg) O2 Sat by Pulse 99 Oximetry Oxygen Devices in Use Now: None Appearance: 32 yo male laying in bed A+O x3 in NAD Eyes: No Scleral Icterus, PERRLA Ears/Nose/Mouth/Throat: NL Teeth, Lips, Gums, Mucous Membranes Moist Neck: NL Appearance and Movements; NL JVP Respiratory: Symmetrical Chest Expansion and Respiratory Effort, Clear to Auscultation Cardiovascular: NL Sounds; No Murmurs; No JVD, RRR, No Edema Abdominal: - Extremities: No Edema, No Clubbing, Cyanosis Skin: No Rash or Ulcers, No Nodules or Sclerosis Neurological: Alert and Oriented x 3, NL Sensation, NL Gait, NL Muscle Strength and Tone Lines/Tubes/Other Access: Clean, Dry and Intact Peripheral IV Nutrition: - - NPOS Result Diagrams: 01/14/18 06:02 01/14/18 06:02 Additional Lab and Data: Lab Results 01/13/18 01/13/18 01/13/18 Range/Units 16:52 16:52 16:52 WBC 3.8 (3.5-10.8) 10^3/ul RBC 4.92 (4.0-5.4) 10^6/ul Hgb 15.1 (14.0-18.0) g/dl Hct 44 (42-52) % MCV 88 (80-94) fL MCH 31 (27-31) pg MCHC 35 (31-36) g/dl RDW 13 (10.5-15) % Plt Count 180 (150-450) 10^3/ul MPV 8.6 (7.4-10.4) um3 Neut % (Auto) 60.2 (38-83) % Lymph % (Auto) 25.7 (25-47) % [place] % (Auto) 10.2 H (0-7) % Eos % (Auto) 3.2 (0-6) % Baso % (Auto) 0.7 (0-2) % Absolute Neuts (auto) 2.3 (1.5-7.7) 10^3/ul Absolute Lymphs (auto) 1.0 (1.0-4.8) 10^3/ul Absolute Monos (auto) 0.4 (0-0.8) 10^3/ul Absolute Eos (auto) 0.1 (0-0.6) 10^3/ul Absolute Basos (auto) 0 (0-0.2) 10^3/ul Absolute Nucleated RBC 0 10^3/ul Nucleated RBC % 0 INR (Anticoag Therapy) (0.77-1.02) APTT (26.0-36.3) seconds Sodium 139 (139-145) mmol/L Potassium 3.8 (3.5-5.0) mmol/L Chloride 102 (101-111) mmol/L Carbon Dioxide 28 (22-32) mmol/L Anion Gap 9 (2-11) mmol/L BUN 12 (6-24) mg/dL Creatinine 1.22 H (0.67-1.17) mg/dL Est GFR ( Amer) 88.0 (>60) Est GFR (Non-Af Amer) 68.4 (>60) BUN/Creatinine Ratio 9.8 (8-20) Glucose 92 (70-100) mg/dL Lactic Acid 0.8 (0.5-2.0) mmol/L Calcium 9.7 (8.6-10.3) mg/dL Magnesium 2.4 (1.9-2.7) mg/dL Total Bilirubin 7.70 H (0.2-1.0) mg/dL AST 185 H (13-39) U/L ALT Pending Alkaline Phosphatase 106 H (34-104) U/L Total Creatine Kinase 93 (10-223) U/L Troponin I 0.00 (<0.04) ng/mL C-Reactive Protein 17.70 H (< 5.00) mg/L Total Protein 7.5 (6.4-8.9) g/dL Albumin 4.9 (3.2-5.2) g/dL Globulin 2.6 (2-4) g/dL Albumin/Globulin Ratio 1.9 (1-3) Amylase 33 (29-103) U/L Lipase 34 (11.0-82.0) U/L Urine Color Urine Appearance Urine pH (5-9) Ur Specific [place] (1.010-1.030) Urine Protein (Negative) Urine Ketones (Negative) Urine Blood (Negative) Urine Nitrate (Negative) Urine Bilirubin (Negative) Urine Urobilinogen (Negative) Ur Leukocyte Esterase (Negative) Urine Glucose (Negative) 01/13/18 01/13/18 Range/Units 16:52 16:54 WBC (3.5-10.8) 10^3/ul RBC (4.0-5.4) 10^6/ul Hgb (14.0-18.0) g/dl Hct (42-52) % MCV (80-94) fL MCH (27-31) pg MCHC (31-36) g/dl RDW (10.5-15) % Plt Count (150-450) 10^3/ul MPV (7.4-10.4) um3 Neut % (Auto) (38-83) % Lymph % (Auto) (25-47) % [place] % (Auto) (0-7) % Eos % (Auto) (0-6) % Baso % (Auto) (0-2) % Absolute Neuts (auto) (1.5-7.7) 10^3/ul Absolute Lymphs (auto) (1.0-4.8) 10^3/ul Absolute Monos (auto) (0-0.8) 10^3/ul Absolute Eos (auto) (0-0.6) 10^3/ul Absolute Basos (auto) (0-0.2) 10^3/ul Absolute Nucleated RBC 10^3/ul Nucleated RBC % INR (Anticoag Therapy) 0.94 (0.77-1.02) APTT 37.6 H (26.0-36.3) seconds Sodium (139-145) mmol/L Potassium (3.5-5.0) mmol/L Chloride (101-111) mmol/L Carbon Dioxide (22-32) mmol/L Anion Gap (2-11) mmol/L BUN (6-24) mg/dL Creatinine (0.67-1.17) mg/dL Est GFR ( Amer) (>60) Est GFR (Non-Af Amer) (>60) BUN/Creatinine Ratio (8-20) Glucose (70-100) mg/dL Lactic Acid (0.5-2.0) mmol/L Calcium (8.6-10.3) mg/dL Magnesium (1.9-2.7) mg/dL Total Bilirubin (0.2-1.0) mg/dL AST (13-39) U/L ALT Alkaline Phosphatase (34-104) U/L Total Creatine Kinase (10-223) U/L Troponin I (<0.04) ng/mL C-Reactive Protein (< 5.00) mg/L Total Protein (6.4-8.9) g/dL Albumin (3.2-5.2) g/dL Globulin (2-4) g/dL Albumin/Globulin Ratio (1-3) Amylase (29-103) U/L Lipase (11.0-82.0) U/L Urine Color Lizzette Urine Appearance Clear Urine pH 6.0 (5-9) Ur Specific [place] 1.011 (1.010-1.030) Urine Protein Negative (Negative) Urine Ketones Negative (Negative) Urine Blood Negative (Negative) Urine Nitrate Negative (Negative) Urine Bilirubin Negative (Negative) Urine Urobilinogen Negative (Negative) Ur Leukocyte Esterase Negative (Negative) Urine Glucose Negative (Negative) Assess/Plan/Problems-Billing Assessment: 32 yo male with known cholelithiasis who was scheduled to have his gallbladder out in 2 weeks presents to the ER on 01/13 with complaints of abdominal discomfort and discolored urine and stool. - Patient Problems (1) Choledocholithiasis Comment: - no signs of sepsis. WBCs a little low today. Afebrile - Appreciate GI consult - plan for MRCP - Appreciate surgical consult - following - Pain control, IVFs - LFTs trending down, recheck lipase - Recheck labs in am - NPO (2) DVT prophylaxis Status and Disposition: inpatient.
[2018-01-14] MEDS: Cetirizine* 10 MG TAB PO SCH (09:28)
--- NOTE | 2018-01-14 09:30 | PN ---
Progress Note - Progress Note Date of Service: 01/14/18 Note: Surgery Progress: S: Feels "uncomfortable" (across upper abd); no N/V. Per pt, urine appears about the same. O: Vital Signs - 8 hr 01/14/18 01/14/18 01/14/18 03:43 07:44 08:56 Temperature 97.8 F Pulse Rate 53 Respiratory 16 18 18 Rate Blood Pressure 101/56 (mmHg) O2 Sat by Pulse 99 Oximetry Intake and Output Last 24 Hours 01/12/18 01/13/18 01/14/18 01/15/18 06:59 06:59 06:59 06:59 Intake Total 2990 Output Total 978 Balance 2011 Weight 205 lb Intake: IV Fluids 2990 NS (0.9%) 990 Oral 0 Output: Urine 978 Other: Estimated Void Medium # Voids 1 Gen: appears mildly uncomfortable HEENT: mild scleral icterus Heart: reg LUngs: clear ant Abd: hypoactive BS; mildly distended(?); soft; mild, nonlocalizing tenderness and moderate RUQ tenderness to palp; no masses Labs: Laboratory Tests 01/14/18 01/14/18 06:02 06:02 WBC 3.3 L Hgb 13.4 L Total Bilirubin 3.30 H D AST 109 H ALT 357 H Alkaline Phosphatase 103 A: cholelithiasis, choleycystitis, with likely choledocholithiasis; possibly passed the stone based on lab improvements P: pt seen by Dr. Keller; will add lipase to this a.m.'s labs; get MRCP, then plan for ERCP vs directly to OR for lap hanh pend results.
--- NOTE | 2018-01-14 12:49 | RAD ---
Indication: Evaluate for common duct calculi Image sequences: Axial T2 fat sat, coronal T2, MRCP coronal images were obtained. Multiple maximum intensity projection images were obtained. The left and right hepatic ducts as well as the common bile duct and common hepatic duct demonstrates no definite filling defects. There is tapering of the distal common duct without evidence of filling defects. The gallbladder demonstrates multiple filling defects consistent with gallstones of varying sizes. There may be a small amount of pericholecystic fluid noted. The liver is otherwise normal in size. Spleen is normal in size. Pancreatic duct is unremarkable. Small amount of pleural fluid is identified bilaterally. IMPRESSION: No evidence of common duct calculi is noted. Multiple gallstones are present.
[2018-01-15] MEDS: NS 0.9% 1000 ML* 1,000 ML IV SCH ×3 (00:39→19:31)
[2018-01-15 06:29] LABS: ABS Basophils 0 10^3/ul (0-0.2); ABS Eosinophils 0.1 10^3/ul (0-0.6); ABS Lymphocytes 1.1 10^3/ul (1.0-4.8); ABS Monocytes 0.3 10^3/ul (0-0.8); ABS Neutrophils 3.1 10^3/ul (1.5-7.7); ABS Nucleated RBC 0 10^3/ul; Eosinophil % 2.5 % (0-6); Hematocrit 40 % (42-52); Hemoglobin 13.7 g/dl (14.0-18.0); Lymphocyte % 22.7 % (25-47); Mean Corpuscular HGB Conc 35 g/dl (31-36); Mean Corpuscular Hemoglobin 31 pg (27-31); Mean Corpuscular Volume 89 fL (80-94); Mean Platelet Volume 8.7 um3 (7.4-10.4); Nucleated Red Blood Cells % 0.1; Platelet Count 156 10^3/ul (150-450); Red Blood Count 4.45 10^6/ul (4.0-5.4); Red Cell Distribution Width 13 % (10.5-15); White Blood Count 4.6 10^3/ul (3.5-10.8)
[2018-01-15 06:47] LABS: EGFR Non-African American 88.1 (>60)
--- NOTE | 2018-01-15 08:41 | PN ---
Progress Note - Progress Note Date of Service: 01/15/18 SOAP: Subjective: Feels better today-much less abdominal pain Has appetite No nausea Objective: Temp Pulse Resp BP Pulse Ox 97.5 F 71 16 108/69 98 01/15/18 03:17 01/15/18 03:17 01/15/18 03:17 01/15/18 03:17 01/15/18 03:17 Intake & Output 01/13/18 01/14/18 01/15/18 01/16/18 06:59 06:59 06:59 06:59 Intake Total 2990 1010 Output Total 978 1900 Balance 2011 Weight 205 lb Intake: IV Fluids 2990 NS (0.9%) 990 IVPB 1010 NS (0.9%) 1010 Oral 0 0 Output: Urine 978 1900 Other: Estimated Void Medium # Bowel Movements 0 # Voids 1 PEX: Comfortable Lungs are clear Abd is soft and non-distended. Mild tenderness in the epigastrum, no guarding or rebound. Bowel sounds are present. Ext without edema Laboratory Results - last 24 hr 01/14/18 01/15/18 01/15/18 06:02 06:16 06:16 WBC 4.6 RBC 4.45 Hgb 13.7 L Hct 40 L MCV 89 MCH 31 MCHC 35 RDW 13 Plt Count 156 MPV 8.7 Neut % (Auto) 67.6 Lymph % (Auto) 22.7 L [place] % (Auto) 6.9 Eos % (Auto) 2.5 Baso % (Auto) 0.3 Absolute Neuts (auto) 3.1 Absolute Lymphs (auto) 1.1 Absolute Monos (auto) 0.3 Absolute Eos (auto) 0.1 Absolute Basos (auto) 0 Absolute Nucleated RBC 0 Nucleated RBC % 0.1 Sodium 143 141 Potassium 4.2 4.2 Chloride 111 109 Carbon Dioxide 26 25 Anion Gap 6 7 BUN 10 12 Creatinine 1.11 0.98 Est GFR ( Amer) 98.1 113.3 Est GFR (Non-Af Amer) 76.3 88.1 BUN/Creatinine Ratio 9.0 12.2 Glucose 94 79 Calcium 8.7 9.1 Total Bilirubin 3.30 H D 1.70 H D AST 109 H 46 H ALT 357 H 258 H Alkaline Phosphatase 103 100 Total Protein 5.9 L 6.3 L Albumin 3.8 3.9 Globulin 2.1 2.4 Albumin/Globulin Ratio 1.8 1.6 Lipase 2366 H 267 H MRCP result reviewed Assessment: Cholelthiasis Czbyultd-tfrahkruu-JGohg almost normal Pancreatitis-secondary to gallstones-improving Plan: Continue NPO/IVF Tentatively plan lap choly tomorrow or Saturday Discussed plan with patient I will take on surgical service-discussed with A Avelion Grimesist.
[2018-01-15] MEDS: Cetirizine* 10 MG TAB PO SCH (08:45)
--- NOTE | 2018-01-15 11:00 | CONS ---
GASTROENTEROLOGY CONSULT: DATE: 01/14/18 CONSULTING PHYSICIANS: Yudelka Grimes NP, King Yee MD REASON FOR CONSULTATION: Abdominal pain and obstructive jaundice with bilirubin of 7. 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 He began having abdominal pain attacks in October. He is known to have gallstones. He has seen Dr. Yee and cholecystectomy is planned in a couple of weeks. LFTs have been normal on 10/23/17 and 12/23/17. He had considerable pain a couple of days ago and noticed the dark urine and somewhat ms access database developer stool. He has never had any prior liver problems He is generally pretty healthy. PAST MEDICAL HISTORY: 1. Seasonal allergies. 2. History of deviated septum repair. 3. [place] teeth extraction. 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 PHYSICAL EXAM: He is a mildly jaundiced young man, in no apparent distress at this time, but he says his upper abdomen is sore and motions broadly. HEENT exam is otherwise unremarkable. He has no adenopathy. His lungs are clear. Heart sounds are normal. The abdomen is symmetric with normal bowel sounds without any scars. The abdomen is soft, though he reports soreness with any deep palpation. Extremities show no deformity or edema. LABS: This morning, bilirubin has fallen to 3.3, ALT from 469 to 357 and alkaline phosphatase from 106 to 103. Electrolytes are normal and WBC 3.3. IMPRESSION AND PLAN: This 32-year-old man with 3 months of biliary colic and known gallstones, clearly had common duct event. The improved LFTs indicates for obtaining an MRCP to decide if he truly needs ERCP. Provisionally, a full description of MRCP and ERCP was given assisted by a diagram. Risks were reviewed and all questions answered. [id number]/[facility] #: [id number] WILBER
[2018-01-15] MEDS ORDERED: Famotidine TAB* 20 MG PO ONE (13:48)
[2018-01-15] MEDS ORDERED: Buffered Lidocaine 0.9% SYRIN* 5 ML/SYR SYRINGE INTRADERM ONE (13:49)
[2018-01-15] MEDS ORDERED: DiMENhydriNATE IV* 50 MG/ML VIAL IV PUSH PRN (13:50)
[2018-01-15] MEDS ORDERED: fentaNYL* 50 MCG/ML 2 ML VIAL (100 MCG VIAL) IV PRN (13:50)
[2018-01-15] MEDS ORDERED: Naloxone* 0.4 MG/ML 1 ML VIAL IV PRN (13:50)
[2018-01-15] MEDS ORDERED: Scopolamine 1.5 mg* PATCH TRANSDERM PRN (13:50)
[2018-01-15] MEDS ORDERED: oxyCODONE/Acetamin 5/325 MG* TAB PO PRN ×3 (13:50→18:22)
[2018-01-15] MEDS ORDERED: PROCHLORPERAZINE INJ 5 MG/ML 2 ML VIAL IV PRN (13:50)
[2018-01-15] MEDS ORDERED: Morphine INJ* 2 MG/ML 1 ML CARPUJECT IV PRN (13:50)
[2018-01-15] MEDS ORDERED: Bupivacaine 0.25% SDV* 30 ML ONE ×2 (15:00→17:46)
[2018-01-15] MEDS ORDERED: ceFAZolin 2 GM PREMIX (*) 2 GM/50 ML BAG IVPB ONE (15:24)
[2018-01-15] MEDS ORDERED: fentaNYL* 50 MCG/ML 2 ML VIAL (100 MCG VIAL) ONE (15:58)
[2018-01-15] MEDS ORDERED: Morphine INJ* 10 MG/ML 1 ML CARPUJECT ONE (15:58)
[2018-01-15] MEDS ORDERED: Atracurium* 10 MG/ML 10 ML VIAL ONE (15:58)
[2018-01-15] MEDS ORDERED: Midazolam* 1 MG/ML 5 ML VIAL (5 MG) ONE (15:59)
[2018-01-15] MEDS ORDERED: Glycopyrrolate IV* 0.2 MG/ML 1 ML VIAL ONE ×2 (16:48→17:57)
[2018-01-15] MEDS ORDERED: Neostigmine Methylsulfate* 2 MG/2 ML SYRINGE ONE ×2 (16:48→17:57)
[2018-01-15] MEDS ORDERED: Propofol* 10 MG/ML 20 ML BTL IV PUSH ONE (16:48)
[2018-01-15] MEDS ORDERED: PROCHLORPERAZINE INJ 5 MG/ML 2 ML VIAL ONE (16:48)
[2018-01-15] MEDS ORDERED: Dexamethasone IV* 4 MG/ML 1 ML (4 MG) ONE (16:48)
[2018-01-15] MEDS ORDERED: Ketorolac INJ* 30 MG/ML 1 ML VIAL ONE (17:06)
--- NOTE | 2018-01-15 18:19 | OP ---
Operative Report - Blank - Operative Report Date of Operation: 01/15/18 Note: Preop Dx: acute cholecystitis; choledocholithiasis Postop Dx: same Procedure: laparoscopic cholecystectomy Anesthesia: GET Surgeon: Amol Asst: LACY Pretty Fluids: 1700 ml RL EBL: < 100 ml Drains: none Specimen: Gallbladder Findings: dictated
[2018-01-15] MEDS ORDERED: Acetaminophen TAB* 325 MG PO PRN (18:22)
[2018-01-15] MEDS ORDERED: Ibuprofen TAB* 600 MG PO PRN (18:23)
[2018-01-16] MEDS: NS 0.9% 1000 ML* 1,000 ML IV SCH (03:10)
--- NOTE | 2018-01-16 08:06 | PN ---
CC: Dr. Keller GASTROENTEROLOGY PROGRESS NOTE: DATE OF SERVICE: 01/15/18 SUBJECTIVE: Mr. Cr is feeling much better today. He did present to the hospital on 01/13/18 wit h abdominal pain and significantly elevated liver function tests including a total bilirubin of 7.7. His lipase yesterday was 2366, his bilirubin was down to 3.3. Today, his total bilirubin is down to 1.7, his AST is 46, ALT of 258, alkaline phosphatase of 100, and lipase of 267. The patient states that his abdominal pain is markedly improved. He did undergo an MRI yesterday, which revealed no charles dence of common bile duct stone or dilatation. He does have multiple gallstones. PHYSICAL EXAMINATION: Temperature 97.4, heart rate of 57, blood pressure of 129/57. Abdomen is soft . There is no significant tenderness. There is no distention. Bowel sounds are present. PERTINENT LABORATORY STUDIES: As described above as well as white blood count of 4.6, hematocrit of 40, platelet count of 156. IMPRESSION AND PLAN: I suspect that Mr. Cr had a common bile duct stone, which resulted in galls tone pancreatitis. I do suspect he passed the stone spontaneously given his significant improvement in pain and his dramatic drop in liver function test and lipase. The patient is planned for cholecys tectomy tomorrow. At this point, I do not feel ERCP is required. Case discussed with Dr. Keller. [id number]/[facility] #: [id number]
--- NOTE | 2018-01-16 08:19 | PN ---
Progress Note - Progress Note Date of Service: 01/16/18 Note: S: "I feel great". Has not req'd any analgesics; perri diet; no N/V. O: Vital Signs - 8 hr 01/16/18 01/16/18 01/16/18 00:45 03:39 04:06 Temperature 97.9 F 97.8 F Pulse Rate 78 57 Respiratory 21 19 Rate Blood Pressure 123/51 106/59 (mmHg) O2 Sat by Pulse 95 95 96 Oximetry Intake and Output Last 24 Hours 01/14/18 01/15/18 01/16/18 01/17/18 06:59 06:59 06:59 06:59 Intake Total 2990 1010 3374 Output Total 978 1900 1400 300 Balance 2011 Weight 205 lb Intake: IV Fluids 2990 2704 ANCEF 2 GMS 50 NS (0.9%) 990 954 lr 1700 IVPB 1010 NS (0.9%) 1010 Oral 0 0 670 Output: Urine 978 1900 1400 300 Other: Estimated Void Medium Medium # Bowel Movements 0 0 Estimated Stool Amount Medium # Voids 1 2 PE: Heart: reg LUngs: clear Abd: lap sites clean and dry under Tegaderm; soft; mild to mod incisional tenderness only A: s/p lap hanh for acute cholecystitis, choledochollithiasis; doing well P: home today; instructions reviewed
[2018-01-16] MEDS: Cetirizine* 10 MG TAB PO SCH (09:15)
[2018-01-16 09:24] VITALS: BP 127/66
--- NOTE | 2018-01-16 10:03 | DS ---
CC: Dr. Dejon Staples, [facility] * DATE OF ADMISSION: 01/13/2018. DATE OF DISCHARGE: 01/16/2018. ATTENDING SURGEON: Dr. King Yee * (LACY Monroe dictating). HOSPITAL COURSE: Please refer to admission history and physical and operative note for specific details. The patient was admitted on 01/13/2018 with a known history of cholelithiasis and biliary colic who had, in fact, been previously scheduled for cholecystectomy, but had been rescheduled. He experienced an episode of biliary colic followed by dark urine and light colored stool for which he presented to the ED and was admitted. His admission bilirubin level was 7.7 with elevation of transaminases as well. His labs had improved the following day, at which time MRCP was performed which showed no filling defects in the common bile duct. At that time, the patient was still experiencing some abdominal discomfort. A lipase was checked and found to be elevated at 2,366. The patient was continued to maintain n.p.o. status and by the following day, , he was feeling much better with resolution of his abdominal pain and improvement in all of his lab parameters. It was decided to proceed to surgery and he underwent laparoscopic cholecystectomy with Dr. Carmichael on 01/15/2018. Findings at the time of surgery included acute and chronically inflamed gallbladder. Surgery was otherwise uneventful. On the morning of discharge, the patient was feeling great and requiring no analgesics and tolerating oral diet. PHYSICAL EXAMINATION ON THE MORNING OF DISCHARGE: General: The patient appears well and in no acute distress. Vital Signs: Temperature 97.8, blood pressure 106/59, pulse 57, respirations 19, room air saturation 96 percent. Heart: Regular rate and rhythm. Lungs: Clear to auscultation. Abdomen: Laparoscopic port sites clean and dry, under Tegaderm dressings, soft with mild to moderate incisional tenderness as expected. IMPRESSION: Status post laparoscopic cholecystectomy for acute on chronic cholecystitis with choledocholithiasis and doing well. PLAN: Home today. Instructions were reviewed regarding wound care, diet, and instructions. He has a follow-up with our office on 01/23/2018. LACY MONROE [id number]/[facility] #: [id number] WILBER
--- NOTE | 2018-01-17 07:22 | OP ---
CC: Dr. Dejon Staples; Dr. Juan Keller; [facility] * DATE OF OPERATION: 01/15/18 - ROOM #353 DATE OF : 83 SURGEON: Eladio Carmichael MD CRYPTOLOGIC TECHNICIAN TECHNICAL: LACY Monroe ANESTHESIA: General anesthesia. PRE-OP DIAGNOSES: Acute cholecystitis and choledocholithiasis. POST-OP DIAGNOSES: Acute cholecystitis and choledocholithiasis. OPERATIVE PROCEDURE: Laparoscopic cholecystectomy. ESTIMATED BLOOD LOSS: Less than 100 cc. FLUIDS: 1700 cc of crystalloid fluid given. SPECIMEN: Gallbladder. DESCRIPTION OF PROCEDURE: The patient was identified in the preoperative area. I discussed with him the recommendation of laparoscopic cholecystectomy. His chart was reviewed. The patient's questions were answered. He was marked and consent was signed having gone over the risks, benefits, and alternatives in standard fashion. The patient was taken to the operating room, placed on the operating room table in the supine position. Preoperative antibiotics were given. Sequential devices were placed on bilateral lower extremities. General anesthesia was induced. The patient's abdomen was prepped and draped in the standard surgical fashion after the hair was clipped. A time-out was performed. Folds of the umbilicus were elevated anteriorly and a Veress needle was inserted into the abdominal cavity, which was then allowed to insufflate to a pressure of 15 mmHg. The patient tolerated the insufflation well. A periumbilical incision was made and a 12-mm trocar was inserted. Laparoscope was inserted through this. There was no evidence of injury from the trocar insertion or from the Veress needle, which was then removed. Additional trocars were then placed in the following position: A 12 mm in the subxiphoid area and two 5 mm along the right costal margin. Gallbladder was identified. The fundus was grasped and retracted above the liver. The infundibulum was adhered to the periduodenal fat. This was swept down to expose the infundibulum. We grasped this and retracted it upward and towards the right. We did not fully appreciate the Calot's triangle at this point. We took the peritoneum off the lateral aspect of the gallbladder the medial aspect. Cystic artery was isolated. It was doubly clipped and ligated. We still could not fully appreciate the cystic duct. We ended up getting around the gallbladder properly and dissected from the mid portion of the gallbladder down and washed as it tapered into the cystic duct. In this retraction, I did cause a small pinhole at the cystic duct. We were able to get our clips below this and the injury remained in the specimen. With 3 clips secured on the cystic duct, we then removed the gallbladder from the liver bed. This was difficult with chronic changes in the posterior aspect of the gallbladder, but we did ultimately remove it, placed in endoscopic retrieval bag and brought it out through the subxiphoid port site after dilating this. Attention was turned to the cystic duct stump and cystic artery stump. There was no bile leakage. We irrigated approximately 2 L of warm fluid and this remained clear. Table was repositioned back to neutral. The gallbladder and its contents were removed through the subxiphoid port in an endoscopic retrieval bag. We did have to break into the gallbladder to relieve the stones to get it through this incision. We passed off the specimen. We then placed a camera at the subxiphoid port site and closed the fascia at the periumbilical incision site with a 0 Polysorb suture using a Weck device. The abdomen was allowed to collapse. Trocars were removed under direct vision and all 4 skin incisions were reapproximated with 4-0 Monocryl sutures followed by Steri- Strips and sterile dressings. The patient tolerated the procedure well, was awoken up in the OR, and transferred to the PACU in stable condition. [id number]/[facility] #: [id number]
[2018-01-18] MEDS ORDERED: Scopolamine PATCH Remove* 1 NOTE MISC PATCH OFF ONE (13:52)
== END 2018-01-16 10:30 | disposition home or self-care (01) | DRG 263 ==
LOC: ED 13:01 → SSU 19:18
PROVIDERS: ADMIT Internal Medicine; ATTEND Surgery
PROC: 0FT44ZZ Resection of Gallbladder, Percutaneous Endoscopic Approach (ICD-10-PCS; principal; 2018-01-15 17:00)
DX: K80.46 Calculus of bile duct with acute and chronic cholecystitis without obstruction (principal); K85.10 Biliary acute pancreatitis without necrosis or infection; R17 Unspecified jaundice; J30.2 Other seasonal allergic rhinitis; Z83.518 Family history of other specified eye disorder; Z80.3 Family history of malignant neoplasm of breast; Z82.49 Family history of ischemic heart disease and other diseases of the circulatory system; Z83.3 Family history of diabetes mellitus; Z72.89 Other problems related to lifestyle
CPT/HCPCS: 36415; 74181; 76376; 76705; 80053; 81003; 82150; 82272; 82550; 83605; 83690; 83735; 84484; 85025; 85610; 85730; 86140; 87045; 87046; 87077; 87086; 87899; 88304; 99284; A9270-GY; J0690; J0780; J1100; J1885; J2250; J2270; J2704; J3010; J3480